=== PATIENT | female | born 1960 | race Hispanic/Latino ===

== ENCOUNTER 2017-03-01 12:44 | Outpatient (CLI) | payer OTHER ==
--- NOTE | 2017-03-16 15:31 | MMO ---
BILATERAL SCREENING MAMMOGRAM: HISTORY: Annual screening exam. COMPARISON: 12/22/14, 12/19/13 studies. Films are reviewed with the assistance of computer-aided detection. FINDINGS: The breasts are heterogeneously dense. Scattered benign calcifications are present. Bilateral breas t augmentation is noted. There is no dominant mass, suspicious calcification, or other signs of williams gnancy. IMPRESSION: BI-RADS category 2 - benign findings. BIRADS 2: Benign Finding(s) Routine annual screening mammography (for women over age 40) POS: BISMARK
== END 2017-03-01 12:45 | disposition home or self-care (01) ==
LOC: MAMMO 12:44
PROVIDERS: ATTEND Family Medicine
DX: Z12.31 Encounter for screening mammogram for malignant neoplasm of breast (principal)
CPT/HCPCS: 77067; G0202